=== PATIENT | male | born 1955 | race Caucasian/White ===

== ENCOUNTER 2019-12-28 21:38 | Emergency (ER) | payer OTHER ==
[2019-12-28 21:47] VITALS: TEMP 98.7; BMI 28.6
--- NOTE | 2019-12-28 22:22 | PDOC ---
History of Present Illness - General Chief Complaint: Lightheaded Stated Complaint: HEADACHES - History of Present Illness Initial Comments: 12/28/19 22:54 64 M with HTN presented to the ED with acute headache. Patient woke up this morning with acute headache, mainly on the left sided of the head, sharp in nature and pulsatile throbbing. In addition, he felt intense pressured like sensation on the left eye associated with teary eye on the left eyes. Admitted to mild photophobia, sonophobia. Patient denies trauma, hx of headache. He usually doesn't get headache often. He ingested Tylenol this morning, but it didn't help. Patient also admitted to have lightheadedness with the spinning sensation when he walked, denies nausea, vomiting, fever, chill, chest pain, abdominal pain. 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 Meds: Hydrocholorothiazide Allergies: iodinated contrast media Tob: denies Etoh: denies Rec drugs:denies PCP: ROS GENERAL/CONSTITUTIONAL: No fever or chills. No weakness. HEAD, EYES, EARS, NOSE AND THROAT: No change in vision. +left pain ,. No sore throat. CARDIOVASCULAR: No chest pain or shortness of breath RESPIRATORY: No cough, wheezing, or hemoptysis. GASTROINTESTINAL: no nausea, no vomiting, diarrhea or constipation. GENITOURINARY: No dysuria, frequency, or change in urination. MUSCULOSKELETAL: No joint or muscle swelling or pain. No neck or back pain. SKIN: No rash NEUROLOGIC: + headache, vertigo, loss of consciousness, or change in strength/sensation. ENDOCRINE: No increased thirst. No abnormal weight change HEMATOLOGIC/LYMPHATIC: No anemia, easy bleeding, or history of blood clots. ALLERGIC/IMMUNOLOGIC: No hives or skin allergy. PE within normal limit. GENERAL: Awake, alert, and fully oriented, in mild acute distress HEAD: No signs of trauma, normocephalic, atraumatic EYES: PERRLA, EOMI, sclera anicteric, conjunctiva clear, left eye lacrimation. ENT: Auricles normal inspection, hearing grossly normal, nares patent, oropharynx clear without exudates. Moist mucosa NECK: Normal ROM, supple, no lymphadenopathy, JVD, or masses LUNGS: No distress, speaks full sentences, clear to auscultation bilaterally HEART: Regular rate and rhythm, normal S1 and S2, no murmurs, rubs or gallops, peripheral pulses normal and equal bilaterally. ABDOMEN: Soft, nontender, normoactive bowel sounds. No guarding, no rebound. No masses EXTREMITIES : Normal inspection, Normal range of motion, no edema. No clubbing or cyanosis. NEUROLOGICAL: Cranial nerves II through XII grossly intact. Normal speech, normal gait, no focal sensorimotor deficits SKIN: Warm, Dry, normal turgor, no rashes or lesions noted 12/29/19 01:47 Past History - Medical History Allergies/Adverse Reactions: Allergies Allergy/AdvReac Type Severity Reaction Status Date / Time Iodinated Contrast Media Allergy Vomiting Verified 03/13/12 10:32 [IV Dye, Iodine Containing Contrast ] Home Medications: Ambulatory Orders Diazepam [Valium] 5 mg PO BID #20 tablet 03/13/12 Naproxen [Naprosyn] 500 mg PO BID #30 tablet 03/13/12 No Home Medications 0 dose .ROUTE UTDICT 03/13/12 COPD: No HTN: Yes - Surgical History Abdominal Surgery: Yes (TOMIR REMOVED FROM STOMACH) - Psycho-Social/Smoking History Smoking Status: No Smoking History: Never smoked Number of Cigarettes Smoked Daily: 0 - Substance Abuse Hx (Audit-C & DAST Scrn) How often the patient has a drink containing alcohol: Never Score: In Men: 4 or > Positive; In Women: 3 or > Positive: 0 Screen Result (Pos requires Nsg. Audit-10AR): Negative In the last yr the pt used illegal drug/Rx for NonMed reason: No Score: Yes response is considered Positive: 0 Screen Result (Positive result requires Nsg. DAST-10): Negative *Physical Exam - Vital Signs Last Vital Signs Temp Pulse Resp BP Pulse Ox 98.7 F 63 19 133/73 97 12/28/19 21:45 12/28/19 21:45 12/28/19 21:45 12/28/19 21:45 12/28/19 21:45 ED Treatment Course - LABORATORY CBC & Chemistry Diagram: 12/28/19 23:10 12/28/19 23:10 Medical Decision Making - Medical Decision Making 12/29/19 01:12 64 M with HTN presented here with acute headache this morning, associated with left eye pain and lacrimation. dx: migraine headache, cluster headache, brain bleed, mass lesion, aneurysm. -Plan to obtain CBC, CMP, coag, trop, chest xray, and CT head noncontrast. -Treated with migraine cocktail and Oxygen Nasal canula. -Med: IV tylenol, decadrone 10, reglan, benadryl, 1L IV fluid. vital signs are within normal limit. Blood work is unremarkable. EKG: nomrla sinus srhthym, left axis deviation, minimal voltage criteria for LVH, vent rate 61, QTc 418. CT scan showed 2.1 cm sellar mass, possibly a pituitary tumor or aneurysm, further evaluated with CTA or MRI Called Oncall neurosurg Dr. Alexis. He suggested with this big of a mass/aneurysm, he should be transferred to other facility that can handle the clipping or mass eval. He needs urgent MRI/CTA. Called [facility]. They will accept him for further management. I talked to Fellow Dr. Brown. She recommended 1 g of Kepra. In case of elevated blood pressure, will do nicadipine drip. The accepting attending is Dr. Riley dawkins-neurovascular surgeon. 12/29/19 01:50 12/29/19 01:54 12/29/19 03:10 Discharge - Discharge Information Problems reviewed: Yes Clinical Impression/Diagnosis: Intracranial mass Headache Qualifiers: Headache type: cluster Disposition: TRANSFER ACUTE CARE/OTHER HOSP - Follow up/Referral - Patient Discharge Instructions - Post Discharge Activity
[2019-12-28] MEDS ORDERED: SODIUM CHLORIDE 1,000 ML IV STA (22:24)
[2019-12-28] MEDS ORDERED: ACETAMINOPHEN 1000 MG/100 ML VIAL (NON FORMULARY) IVPB ONE (22:24)
[2019-12-28] MEDS ORDERED: METOCLOPRAMIDE HCL INJECTION 10 MG/2 ML VIAL IVPUSH ONE ×2 (22:24→23:51)
--- NOTE | 2019-12-28 22:29 | PDOC ---
Attending Attestation - Resident Resident Name: Jack Tse - ED Attending Attestation I have performed the following: I have examined & evaluated the patient, The case was reviewed & discussed with the resident, I agree w/resident's findings & plan - HPI HPI: 12/29/19 00:58 see resident hpi - Physicial Exam PE: 12/29/19 00:59 see resident exam - Critical Care Time Total Critical Care Time: 60 Critical Care Statement: The care of this patient involved high complexity decision making to prevent further life threatening deterioration of the patient's condition and/or to evaluate & treat vital organ system(s) failure or risk of failure. - Medical Decision Making 12/29/19 00:59 64-year-old male with left-sided headache radiating to the left eye present when he woke up this morning at [address] scan of the brain reveals areas of calcification versus mass versus aneurysm Case discussed with on-call neurosurgery who recommends transfer to a tertiary care center for further intervention Patient agrees to transfer, family at the bedside 12/29/19 01:18 Discharge - Discharge Information Problems reviewed: Yes Clinical Impression/Diagnosis: Intracranial mass, Headache - Follow up/Referral - Patient Discharge Instructions - Post Discharge Activity
[2019-12-28 23:19] LABS: BASO % 0.3 % (0-2.0); HEMATOCRIT 40.4 % (35.4-49); HEMOGLOBIN 13.8 GM/dL (11.7-16.9); LYMPH % 13.3 % (8-40); MCH 28.2 pg (25.7-33.7); MCHC 34.1 g/dl (32.0-35.9); MEAN CELL VOLUME 82.9 fl (80-96); MEAN PLT VOLUME 9.1 fl (7.5-11.1); MONO % 3.3 % (3.8-10.2); NEUT % 83.1 % (42.8-82.8); PLATELET COUNT 188 K/MM3 (134-434); RBC 4.88 M/mm3 (4.00-5.60); RDW 15.2 % (11.9-15.9); WHITE BLOOD COUNT 6.9 K/mm3 (4.0-10.0)
[2019-12-28 23:27] LABS: INR 1.07 (0.83-1.09); PROTHROMBIN TIME (PATIENT) 12.6 SEC (9.7-13.0)
[2019-12-28 23:30] LABS: ACTIVATED PTT 25.9 SECONDS (25.2-36.5)
[2019-12-28] MEDS ORDERED: METOCLOPRAMIDE HCL INJECTION 10 MG/2 ML VIAL ONE (23:31)
[2019-12-28] MEDS ORDERED: ACETAMINOPHEN INJECTION 100 ML IVPB ONE (23:31)
[2019-12-28] MEDS ORDERED: DEXAMETHASONE SOD PHOSPHATE 10 MG/1 ML VIAL IVPUSH ONE (23:39)
[2019-12-28 23:42] LABS: ALK PHOS 57 U/L (45-117); ANION GAP 8 MMOL/L (8-16); BILIRUBIN,TOTAL 0.6 mg/dL (0.2-1); BLOOD UREA NITROGEN 20.3 mg/dL (7-18); CALCIUM 9.3 mg/dL (8.5-10.1); CHLORIDE 105 mmol/L (98-107); CO2 26 mmol/L (21-32); CREATININE 0.8 mg/dL (0.55-1.3); GLUCOSE,RANDOM 119 mg/dL (74-106); MAGNESIUM 1.7 mg/dL (1.8-2.4); N-TERMINAL BNP 76.3 pg/ml (5-125); POTASSIUM 3.9 mmol/L (3.5-5.1); SGOT/AST 23 U/L (15-37); SGPT/ALT 28 U/L (13-61); SODIUM 139 mmol/L (136-145); TOT PROT 7.3 g/dl (6.4-8.2)
[2019-12-29] MEDS ORDERED: DEXAMETHASONE SOD PHOSPHATE 10 MG/1 ML VIAL ONE (00:40)
[2019-12-29] MEDS ORDERED: levETIRAcetam 500 MG/5 ML INJECTION VIAL IVPB ONE ×2 (01:41→02:10)
[2019-12-29 02:41] VITALS: BP 121/70; PULSE 61
--- NOTE | 2019-12-29 14:04 | EKG ---
Test Reason : Blood Pressure : / mmHG Vent. Rate : 061 BPM Atrial Rate : 061 BPM P-R Int : 150 ms QRS Dur : 090 ms QT Int : 416 ms P-R-T Axes : 007 -30 011 degrees QTc Int : 418 ms NORMAL SINUS RHYTHM LEFT AXIS DEVIATION MINIMAL VOLTAGE CRITERIA FOR LVH, MAY BE NORMAL VARIANT ABNORMAL ECG NO PREVIOUS ECGS AVAILABLE Confirmed by HALLIE PATEL MD ([id number]) on 12/29/2019 2:04:04 PM Referred By: Confirmed By:HALLIE PATEL MD
== END 2019-12-29 02:43 | disposition short-term general hospital (02) ==
LOC: JER 21:38
PROC: 3E033NZ Introduction of Analgesics, Hypnotics, Sedatives into Peripheral Vein, Percutaneous Approach (ICD-10-PCS; principal; 2019-12-28)
PROC: 3E033GC Introduction of Other Therapeutic Substance into Peripheral Vein, Percutaneous Approach (ICD-10-PCS; 2019-12-28)
PROC: 3E0337Z Introduction of Electrolytic and Water Balance Substance into Peripheral Vein, Percutaneous Approach (ICD-10-PCS; 2019-12-28)
DX: R90.0 Intracranial space-occupying lesion found on diagnostic imaging of central nervous system (principal)
CPT/HCPCS: 36415; 70450-TC; 71045-TC-FY; 80053; 82550; 82962; 83735; 83880; 84484; 85025; 85610; 85730; 93005; 93010; 99285-25; J0131; J1100